=== PATIENT | female | born 1965 | race Two or more races ===

== ENCOUNTER 2023-11-15 17:06 | Emergency (ER) | payer MEDICAID, OTHER ==
[~2023-11-15] VITALS: Ht 154.9 cm; Wt 49.2 kg
[2023-11-15 17:25] VITALS: BP 117/60; PULSE 68; RESP 14; TEMP 98.3; O2SAT 99
== END 2023-11-15 17:35 | disposition home or self-care (01) ==
LOC: ER 17:06
DX: Z00.00 Encounter for general adult medical examination without abnormal findings (principal); R23.2 Flushing

== ENCOUNTER 2024-08-31 20:13 | Emergency (ER) | payer MEDICAID, OTHER ==
[~2024-08-31] VITALS: Ht 157.5 cm; Wt 52.5 kg
[~2024-08-31 20:13] MED LIST: AMIO200T33 PO; APIX5TAB PO; FAMO20TA10 PO; METO25TA5 PO
--- NOTE | 2024-08-31 20:24 | ED.PDOC ---
History of Present Illness HPI Comments 59 year old female presents to the ED with a chief complaint of dizziness onset today (08/31/24). Patient states she was cleaning for about 45 minutes when she began experiencing dizziness, blurred vision, nausea. Patient states she currently feels the chemical "stuck in her throat." She is currently on blood thinners, denies any PMHx. Denies headache, chest pain, shortness of breath, vomiting, diarrhea, abdominal pain, fever, chills, hematuria, hematemesis. No other symptoms or modifying factors present at this time. Time Seen by MD: 20:15 Reviewed Notes: Medications, Allergies Allergies: Coded Allergies: NO KNOWN ALLERGIES (Unverified , 11/15/23) Home Meds Active Scripts Metoprolol Tartrate (Metoprolol Tartrate) 25 Mg Tab, 0.5 TAB PO BID for 30 Days, #30 TAB 1 Refill Prov:FRANCIS PAVON RESIDENT 01/07/24 Famotidine (PEPCID TABLET) 20 Mg Tb, 1 TAB PO BID for 20 Days, #40 TAB 5 Refills Prov:FRANCIS PAVON RESIDENT 01/07/24 Apixaban Base (ELIQUIS) 5 Mg Tab, 5 MG PO BID for 30 Days, #60 TAB Prov:FRANCIS PAVON RESIDENT 01/07/24 Amiodarone Hcl (Amiodarone Hcl) 200 Mg Tab, 1 TAB PO BID for 30 Days, #60 TAB 1 Refill Prov:PAVONFRANCIS LOOMIS RESIDENT 01/07/24 Information Source: Patient Mode of Arrival: Wheelchair Severity: Moderate Timing: Minutes Duration: Since onset Prehospital treatment: None Vital Signs Vital Signs Date Time Temp Pulse Resp B/P (MAP) Pulse Ox O2 Delivery O2 Flow Rate FiO2 09/01/24 01:57 97.9 75 11 127/70 (89) 99 97.9 09/01/24 00:34 Room Air* 0 21 Physical Exam General: Awake, alert and oriented. No acute distress. Skin: Skin in warm, dry and intact. Appropriate color for ethnicity. HEENT: The head is normocephalic and atraumatic. Conjunctivae are clear without exudates or hemorrhage. Sclera is non-icteric. EOM are intact. No signs of nystagmus. Eyelids are normal in appearance without swelling or lesions. Oral mucosa is pink and moist Neck: The neck is supple with normal range of motion. No JVD. Cardiac: Heart rate and rhythm are normal. No murmurs, gallops, or rubs are auscultated. Respiratory: No signs of respiratory distress. Lung sounds are clear in all lobes bilaterally without rales, rhonchi, or wheezes. Abdominal: Abdomen is soft, non-tender without distention, guarding or rigidity. Bowel sounds are present and normoactive in all four quadrants. Extremities: Upper and lower extremities are atraumatic in appearance without deformity or edema. Neurological: The patient is awake, alert and oriented to person, place, and lina e with normal speech. Speech is clear. There is no facial asymmetry. Psychiatric: Appropriate mood and affect. Good judgement and insight. Review of Systems: As stated in HPI Past Medical History PAST MEDICAL HISTORY: Denies Surgical History: Denies all surgeries OVEN DRIER TENDER History: No Pertinent OVEN DRIER TENDER History Family History Family History: Reviewed,noncontributory to illness Social History Smoker: Non-Smoker Alcohol: Denies ETOH Use Drugs: Denies Drug Use Lives In: Home Was a procedure done? Was a procedure done?: No EKG EKG : Pulse Rate (adult): 72 Cardiac Rhythm: NSR Differential Dx Considerations may include: Differential diagnoses considered include but are not limited to toxic exposure, pneumonitis, airway injury, cardiac structural disease, arrhythmia, acute coronary syndrome, orthostasis, pulmonary embolism, dissection, seizure, basilar stroke, other. X-Ray, Labs, Meds, VS Vital Signs Date Time Temp Pulse Resp B/P (MAP) Pulse Ox O2 Delivery O2 Flow Rate FiO2 09/01/24 01:57 97.9 75 11 127/70 (89) 99 97.9 09/01/24 00:34 68 14 99 Room Air* 0 21 08/31/24 23:00 64 14 134/66 (88) 100 08/31/24 22:00 73 8 140/78 (98) 100 08/31/24 21:00 64 16 137/67 (90) 100 08/31/24 20:45 98.3 68 14 140/68 (92) 99 98.3 08/31/24 20:31 97.8 67 18 140/68 (92) 100 97.8 08/31/24 20:31 67 08/31/24 20:24 72 7/9/25 20:14 72 Lab Test 08/31/24 21:35 08/31/24 20:35 Range/Units Troponin I High Sensitivity 3 L 3 L </=34 ng/L White Blood Count 5.2 4.4-10.8 10^3/uL Red Blood Count 4.06 4.0-5.20 10^6/uL Hemoglobin 12.4 12.2-16.2 g/dL Hematocrit 36.8 36.0-46.0 % Mean Corpuscular Volume 90.6 80.0-100.0 fL Mean Corpuscular Hemoglobin 30.5 28.0-32.0 pg Mean Corpuscular Hemoglobin Concent 33.7 32.0-36.0 g/dL Red Cell Distribution Width 13.7 11.8-14.3 % Platelet Count 211 140-450 10^3/uL Mean Platelet Volume 8.2 6.9-10.8 fL Neutrophils (%) (Auto) 59.2 37.0-80.0 % Lymphocytes (%) (Auto) 30.8 10.0-50.0 % Monocytes (%) (Auto) 6.9 0.0-12.0 % Eosinophils (%) (Auto) 2.5 0.0-7.0 % Basophils (%) (Auto) 0.6 0.0-2.0 % Neutrophils # (Auto) 3.1 1.6-8.6 10 ^3/uL Lymphocytes # (Auto) 1.6 0.4-5.4 10 ^3/uL Monocytes # (Auto) 0.4 0-1.3 10 ^3/uL Eosinophils # (Auto) 0.1 0-0.8 10 ^3/uL Basophils # (Auto) 0 0-0.2 10 ^3/uL Nucleated Red Blood Cells 0.1 % Sodium Level 141 136-145 mmol/L Potassium Level 3.6 3.5-5.1 mmol/L Chloride Level 105 98-107 mmol/L Carbon Dioxide Level 27 20-31 mmol/L Anion Gap 9 5-15 Blood Urea Nitrogen 20 9-23 mg/dL Creatinine 0.69 0.550-1.02 mg/dL Glomerular Filtration Rate Calc 99 >90 mL/min BUN/Creatinine Ratio 29.0 H 10.0-20.0 Serum Glucose 95 74-106 mg/dL Calcium Level 10.4 8.7-10.4 mg/dL Current Medications Medications (Trade) Dose Ordered Sig/Dale Route Start Time Stop Time Status Last Admin Sodium Chloride 1,000 ml @ 1,000 mls/hr Q1H ONCE IV 08/31/24 20:30 08/31/24 21:29 DC 08/31/24 20:30 Time of 1ST Reevaluation: 20:45 Reevaluation 1ST: Unchanged Patient Education/Counseling: Need For Follow Up Family Education/Counseling: No Family Present SEPSIS Sepsis Screen Physician Orders Electrocardigram (08/31/24 20:16) Fishing Reel Assembler (08/31/24 ) Orthostatic Vital Signs (08/31/24 ) Vital Signs Date Time Temp Pulse Resp B/P (MAP) Pulse Ox O2 Delivery O2 Flow Rate FiO2 09/01/24 01:57 97.9 75 11 127/70 (89) 99 97.9 09/01/24 00:34 68 14 99 Room Air* 0 21 08/31/24 23:00 64 14 134/66 (88) 100 08/31/24 22:00 73 8 140/78 (98) 100 08/31/24 21:00 64 16 137/67 (90) 100 08/31/24 20:45 98.3 68 14 140/68 (92) 99 98.3 08/31/24 20:31 97.8 67 18 140/68 (92) 100 97.8 08/31/24 20:31 67 08/31/24 20:24 72 08/31/24 20:14 72 Laboratory Tests Test 08/31/24 20:35 White Blood Count 5.2 10^3/uL (4.4-10.8) Medications Medications Dose Ordered Sig/Dale Route Start Time Stop Time Status Last Admin Dose Admin Sodium Chloride 1,000 ml @ 1,000 mls/hr Q1H ONCE IV 08/31/24 20:30 08/31/24 21:29 DC 08/31/24 20:30 Departure 1 Departure Time of Disposition: 01:27 Impression: Primary Impression: Dizziness Additional Impression: Chemical exposure Disposition: 01 HOME / SELF CARE / HOMELESS Condition: Stable Additional Instructions: INSTRUCCIONES DE BOY DE Urgencias Instrucciones: Nicole atentamente todas las instrucciones proporcionadas en chuy paquete. Aunque le hayan dado el boy del Departamento de Emergencias, esto no significa que tenga un "certificado de buena el". Hoy no se mccollum realizado ningn diagnstico definitivo para akiko sntomas. Es posible que ests en proceso de desarrollar qing enfermedad grave. Es por eso que debe regresar al servicio de urgencias sin falta si presenta algn sntoma nuevo o que empeora (especialmente si akiko sntomas incluyen mareos, dolor en el pecho, dificultad para respirar, dolor abdominal, fiebre, dolor de magui, confusin, dificultad para sachi o caminar). Salvadorbin es muy importante que consulte a un mdico de atencin primaria dentro de los prximos 1 a 3 keenan para realizar un seguimiento. Si no puede conseguir qing horacio, regrese al servicio de urgencias para qing nueva evaluacin. Mareos: Instrucciones de cuidado El mareo es la sensacin de inestabilidad o confusin mental. Es diferente del vrtigo, que es la sensacin de que la habitacin da vueltas, de que darin se mueve o se . Tambin es diferente del aturdimiento, que es la sensacin de estar a punto de desmayarse. Puede ser difcil saber qu causa el mareo. Algunas personas se sienten mareadas cuando tienen migraas. A veces, los episodios de gripe pueden causar mareos. Algunas afecciones mdicas, yazan problemas cardacos o hipertensin arterial, tambin pueden causar mareos. Muchos medicamentos pueden causar mareos, inclu yendo los medicamentos para la hipertensin, el dolor o la ansiedad. Si un medicamento le causa los sntomas, hudson mdico podra recomendarle que lo suspenda o lo cambie. Si se trata de un problema cardaco, podra necesitar medicamentos para mejorar hudson funcionamiento. Si no hay qing causa christina de akiko sntomas, hudson mdico podra sugerirle que observe y espere un tiempo para sachi si el mareo desaparece por s solo. El seguimiento es fundamental para hudson tratamiento y seguridad. Asegrese de programar y acudir a todas akiko citas, y llame a hudson mdico si tiene algn problema. Tambin es recomendable estar al tanto de los resultados de akiko p ruebas y llevar qing lista de los medicamentos que heriberto. Signal Maintainer puedes cuidarte en casa? Si hudson mdico le recomienda o le receta un medicamento, tmelo exactamente yazan se lo indique. Llame a hudson mdico si nathalia que tiene algn problema con hudson medicamento. No conduzca si se siente mareado. Intente prevenir las cadas. Algunas medidas que puede antonio son: Usar tapetes antideslizantes, agregar barras de apoyo cerca de la baera y usar luces nocturnas. Limpiar hudson casa para que los pasillos estn libres de cualquier cosa con la que pueda tropezar. Avisar a familiares y amigos que se mccollum sentido mareado les ayudar a saber web press operator apprentice ayudarle. Cundo debes pedir ayuda? Llame al 911 en cualquier momento que considere que necesita atencin de emergencia. Por ejemplo, llame si: Te desmayaste (perdiste el conocimiento). Tienes mareos repentinos que no mejoran. Tiene mareos y sntomas de un infarto. Estos pueden incluir: Dolor o presin en el pecho, o qing sensacin extraa en el pecho. Transpiracin. Dificultad para respirar. Nuseas o vmitos. Dolor, presin o qing sensacin extraa en la espalda, el higinio, la mandbula o la parte superior del abdomen o en darin o ambos hombros o brazos. Mareo o debilidad repentina. Un ritmo cardaco rpido o irregular. Tiene sntomas de un derrame cerebral. Estos pueden incluir: Entumecimiento repentino, hormigueo, debilidad o prdida de movimiento en la bron[place], el brazo o la pierna, especialmente en un solo lado del cuerpo. Cambios repentinos en la visin. Dificultad repentina para hablar. Confusin repentina o dificultad para comprender afirmaciones simples. Problemas repentinos con la marcha o el equilibrio. Un dolor de magui repentino y oscar que es diferente a los melonie de magui anteriores. Llame a hudson mdico ahora o busque atencin mdica inmediata si: Se siente mareado y tiene fiebre, dolor de magui o zumbido en los odos. Tiene nuseas y vmitos nuevos o en aumento. El mareo no desaparece ni regresa. Preste atencin a los cambios en hudson el y asegrese de comunicarse con hudson mdico si: No mejoras yazan esperabas Crditos para el mareo: Instrucciones de cuidado Actualizado al: 3 de 2023 Autor: Personal de [facility] reyna Junta de revisin clnica Toda la educacin de AXEL Valles es revisada por un equipo que incluye mdicos, enfermeras, profesionales avanzados, dietistas registrados y otros profesionales de la el. Comments Patient re-evaluated prior to discharge She is feeling significantly improved and would like to go home. On discharge she is denying shortness of breath, chest pain, dizziness. She is able to ambulate without difficulty. We were unable to find out the name of the chemical patient was exposed to and therefore consult poison control Patient well-appearing, nontoxic. Advised prompt follow-up with PCP, return to the ED with any new, worsening or concerning symptoms. - Critical Care Note Critical Care Time?: No Stability Stability form required: No I personally scribed for HELEN MERINO MD ([email or web address]) on 08/31/24 at 20:24. Electronically submitted by Iwona Holbrook ([email or web address]). HELEN MERINO MD Aug 31, 2024 20:24
[2024-08-31] MEDS: SODIUM CHLORIDE 0.9% 1,000 ML IV ONE (20:30)
[2024-08-31] MEDS: ONDANSETRON HCL 4 MG/2 ML VIAL IV ONE (20:30)
[2024-08-31 20:51] LABS: Hematocrit 36.8 % (36.0-46.0); Hemoglobin 12.4 g/dL (12.2-16.2); Mean Corpuscular Hemoglobin 30.5 pg (28.0-32.0); Mean Corpuscular Volume 90.6 fL (80.0-100.0); Nucleated Red Blood Cells % 0.1 %
[2024-08-31 21:02] LABS: Chloride 105 mmol/L (98-107); Potassium 3.6 mmol/L (3.5-5.1); Sodium 141 mmol/L (136-145)
[2024-08-31 21:03] LABS: Anion Gap 9 (5-15); Carbon Dioxide 27 mmol/L (20-31)
[2024-08-31 21:08] LABS: BUN/Creatinine Ratio 29.0 (10.0-20.0); Blood Urea Nitrogen 20 mg/dL (9-23); Glucose 95 mg/dL (74-106)
[2024-08-31 21:20] LABS: Calcium 10.4 mg/dL (8.7-10.4)
[2024-09-01 00:34] VITALS: PULSE 68; RESP 14; O2SAT 99
[2024-09-01 01:57] VITALS: BP 127/70; PULSE 75; RESP 11; TEMP 97.9; O2SAT 99
--- NOTE | 2024-09-01 10:31 | ECG ---
[facility] Test Date: 2024-08-31 Test Time: 20:14:58 Pat Name: DENNIS XIONG Department: ED Room: Gender: F Windows Consultant: meghann : 1965 Requested By: EMERGENCY EMERGENCY Order Number: [id number] Reading MD: Harlan Camilo Measurements Intervals [place] Rate: 72 P: 80 ME: 154 QRS: 93 QRSD: 96 T: 58 QT: 396 QTc: 434 Interpretive Statements Sinus rhythm Right axis deviation Baseline wander in lead(s) V4 Electronically Signed On 09-01-2024 19:07:33 PDT by Harlan Camilo Please click the below link to view image of tracing.
== END 2024-09-01 02:19 | disposition home or self-care (01) ==
LOC: ER 20:13 → EEVIPCON 20:13 → ER 09-01 02:19
DX: R42 Dizziness and giddiness (principal); Z77.098 Contact with and (suspected) exposure to other hazardous, chiefly nonmedicinal, chemicals; Z79.899 Other long term (current) drug therapy; Z79.01 Long term (current) use of anticoagulants
CPT/HCPCS: 36415; 80048; 84484; 85025; 93005; 96360; 99285; J7030